=== PATIENT | male | born 1995 | race Caucasian/White ===

== ENCOUNTER 2019-01-09 15:30 | Emergency (ER) | payer OTHER ==
[~2019-01-09] VITALS: Ht 188 cm; Wt 100.8 kg
[2019-01-09 15:36] VITALS: BP 133/88
[2019-01-09] MEDS ORDERED: LIDOcaine 1% w/epiNEPHrine 1:200,000 30ml vial IM ONE (16:20)
[2019-01-09] MEDS ORDERED: TETanus/Pertussis (Acell)/Diphther VAC/PF (Tdap-Adult) 0.5ml syringe IM ONE (16:45)
[2019-01-09] MEDS ORDERED: CEPH500C5 PO (16:51)
== END 2019-01-09 17:38 | disposition home or self-care (01) ==
LOC: ER 15:30
DX: S51.842A Puncture wound with foreign body of left forearm, initial encounter (principal); W45.8XXA Other foreign body or object entering through skin, initial encounter; Y93.89 Activity, other specified; Y92.89 Other specified places as the place of occurrence of the external cause; Y99.8 Other external cause status
CPT/HCPCS: 90471; 90715; 99284; J3490